=== PATIENT | female | born 1995 | race Caucasian/White ===

== ENCOUNTER 2018-08-20 15:33 | Emergency (ER) | payer MEDICAID ==
[~2018-08-20] VITALS: Ht 157.5 cm; Wt 55.8 kg
[2018-08-20 15:35] VITALS: BP_SYST 128
[2018-08-20] MEDS: IBUPROFEN 600 MG TABLET PO ONE (17:11)
[2018-08-20 17:41] VITALS: BP_SYST 128
== END 2018-08-20 17:41 | disposition home or self-care (01) ==
LOC: EDBD 15:33 → SED 15:33
DX: S60.222A Contusion of left hand, initial encounter (principal); R03.0 Elevated blood-pressure reading, without diagnosis of hypertension; V89.2XXA Person injured in unspecified motor-vehicle accident, traffic, initial encounter; Y93.89 Activity, other specified; Y92.410 Unspecified street and highway as the place of occurrence of the external cause; Y99.8 Other external cause status
CPT/HCPCS: 99283